=== PATIENT | female | born 2000 | race Caucasian/White ===

== ENCOUNTER 2022-03-04 19:17 | Emergency (ER) | payer MEDICAID ==
[~2022-03-04] VITALS: Ht 162.6 cm; Wt 65.0 kg
[2022-03-04 20:19] VITALS: BP 98/64
[2022-03-04] MEDS ORDERED: FAMOTIDINE 20MG/2ML VIAL IV ONE (20:30)
[2022-03-04] MEDS ORDERED: SODIUM CHLORIDE 0.9% 1,000 ML IV ONE (20:30)
[2022-03-04] MEDS ORDERED: DIPHENHYDRAMINE 50MG/ML VIAL IV ONE (20:30)
[2022-03-04] MEDS ORDERED: METHYLPREDNISOLONE SOD SUCC 125 MG/2 ML VIAL IV ONE (20:30)
[2022-03-04] MEDS ORDERED: PRED10TA MT (22:47)
== END 2022-03-04 23:12 | disposition home or self-care (01) ==
LOC: ER 19:17
DX: T78.1XXA Other adverse food reactions, not elsewhere classified, initial encounter (principal); R21 Rash and other nonspecific skin eruption; R06.00 Dyspnea, unspecified; R07.0 Pain in throat; R53.1 Weakness; X58.XXXA Exposure to other specified factors, initial encounter
CPT/HCPCS: 96361; 96374; 96375; 99284; J1200; J2930; J3490; J7030

== ENCOUNTER 2023-09-14 09:25 | Emergency (ER) | payer MEDICAID ==
[~2023-09-14] VITALS: Ht 167.6 cm; Wt 79.0 kg
[~2023-09-14 09:25] MED LIST: PRED10TA MT
[2023-09-14 09:29] VITALS: O2SAT 100
[2023-09-14] MEDS: HYDROCODONE/ACETAMINOPHEN 10/325MG TABLET PO ONE (10:18)
[2023-09-14 10:33] LABS: BASOPHILS % 0.2 % (0.0-2.0); EOSINOPHILS % 1.5 % (0.0-5.0); HCG SCREEN NEGATIVE; HEMATOCRIT. 41.1 % (36.0-48.0); HEMOGLOBIN. 14.1 g/dL (12.0-16.0); LYMPHOCYTES % 20.5 % (20.0-50.0); MEAN CORPUSCULAR HEMOGLOBIN 29.9 pg (28.0-32.0); MEAN CORPUSCULAR HGB CONC 34.3 g/dL (31.0-37.0); MEAN CORPUSCULAR VOLUME 87.2 fL (81.0-99.0); MEAN PLATELET VOLUME 8.6 fl (7.4-10.4); NEUTROPHILS % 69.8 % (40.0-76.0); PLATELET 305 x1000/uL (130-400); RED BLOOD CELL COUNT 4.72 mill/uL (4.2-5.4); RED CELL DISTRIBUTION WIDTH 13.5 % (11.6-14.6); WHITE BLOOD COUNT 7.1 x1000/uL (4.5-11.0)
[2023-09-14 10:43] LABS: ALANINE AMINOTRANSFERASE 102 IU/L (10-49); ALBUMIN 4.9 g/dL (3.2-4.8); ASPARTATE AMINOTRANSFERASE 46 IU/L (<34); BILIRUBIN TOTAL 0.5 mg/dL (0.1-1.0); CARBON DIOXIDE 25 mEq/L (21-32); CHLORIDE 104 mEq/L (98-107); CREATININE 0.7 mg/dL (0.6-1.0); GLUCOSE 94 mg/dL (70-105); POTASSIUM 3.7 mEq/L (3.5-5.1); PROTEIN TOTAL 7.7 g/dL (6.0-8.3); SODIUM 135 mEq/L (136-145); UREA NITROGEN BLOOD 16 mg/dL (9-23)
[2023-09-14 10:48] LABS: PROTHROMBIN TIME 11.3 sec (9.6-11.0)
[2023-09-14] MEDS ORDERED: CYCL5TAB MT (11:49)
[2023-09-14] MEDS ORDERED: IBUP-2030 MT (11:49)
[2023-09-14] MEDS ORDERED: ACET-2708 MT (12:01)
[2023-09-14] MEDS: KETOROLAC 30MG/ML VIAL IV ONE (12:16)
[2023-09-14 12:17] VITALS: BP 130/84; PULSE 66; RESP 17; TEMP 98.1
== END 2023-09-14 12:30 | disposition home or self-care (01) ==
LOC: ER 09:25
DX: S09.90XA Unspecified injury of head, initial encounter (principal); K76.0 Fatty (change of) liver, not elsewhere classified; E07.9 Disorder of thyroid, unspecified; I10 Essential (primary) hypertension; V49.9XXA Car occupant (driver) (passenger) injured in unspecified traffic accident, initial encounter; Y93.89 Activity, other specified; Y92.89 Other specified places as the place of occurrence of the external cause; Y99.8 Other external cause status
CPT/HCPCS: 99285; 70450; 96374; 80053; 81025; 84703; 85025; 85610; 36415; 71260; 72125; 74177; J1885